=== PATIENT | male | born 2000 | race Caucasian/White ===

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

== ENCOUNTER 2021-04-09 17:21 | Emergency (ER) | payer BC, OTHER ==
[2021-04-09] MEDS ORDERED: Dexamethasone 10 MG/ML VIAL ONE (18:32)
== END 2021-04-09 18:35 | disposition home or self-care (01) ==
LOC: BURERS 17:21
DX: J10.1 Influenza due to other identified influenza virus with other respiratory manifestations (principal)
CPT/HCPCS: 87804; 99283; J1100

== ENCOUNTER 2022-08-16 09:22 | Emergency (ER) | payer BC, OTHER | END 2022-08-16 10:39 | disposition home or self-care (01) | LOC: BURERS 09:22 | DX: S00.432A Contusion of left ear, initial encounter (principal); S09.90XA Unspecified injury of head, initial encounter; H11.30 Conjunctival hemorrhage, unspecified eye; Y04.8XXA Assault by other bodily force, initial encounter | CPT/HCPCS: 70450; 72125 ==